=== PATIENT | female | born 1980 | race Caucasian/White ===

== ENCOUNTER → 2016-10-19 | Outpatient (CLI) | payer OTHER ==
[2016-05-17 19:30] VITALS: BP 130/71
[~2016-10-19] MED LIST: ALPR0.5T PO; ARIP20TA8 PO; CETI10TA22 PO; CLON0.5T PO; COLC0.6T34 PO; DOCU50CA6 PO; FERR325C PO; FLEC100T PO; FLUT1DIS IH; HYDR-971 PO; MONT10TA6 PO; NEBI5TAB2 PO; OMEP40CA5 PO; ONDA4TAB10 PO; OXYC-323; PRED20TA PO; RANI150C PO; SULF1TAB24 PO; SUMA100T4 PO; TRAM-29 PO
--- NOTE | 2016-10-19 15:47 | RAD ---
CT of the chest without contrast, 10/19/2016: History: Pleuritic chest pain, asthma Noncontrast scans were obtained as requested. The thoracic aorta is unremarkable. A couple of tiny coronary artery calcifications are noted in the proximal LAD. Small mediastinal lymph nodes are seen without evidence of pathologic enlargement. Hazy increased density in the anterior mediastinum is compatible with a small amount of residual thymic tissue. There are minimal linear opacities in the inferior lingular region compatible with scarring. No pulmonary mass or consolidation is seen. There is no evidence of pleural fluid. The gallbladder is surgically absent. IMPRESSION: 1. Minimal coronary artery calcification. 2. Minimal lingular scarring. 3. No acute abnormality is detected. PQRS Compliance Statement: One or more of the following individualized dose reduction techniques were utilized for this examination: 1. Automated exposure control 2. Adjustment of the mA and/or kV according to patient size 3. Use of iterative reconstruction technique
== END | disposition home or self-care (01) ==
LOC: CT 13:03
PROVIDERS: ATTEND Family Medicine
DX: J45.909 Unspecified asthma, uncomplicated (principal); I25.10 Atherosclerotic heart disease of native coronary artery without angina pectoris; L90.5 Scar conditions and fibrosis of skin; R07.81 Pleurodynia
CPT/HCPCS: 71250

== ENCOUNTER 2016-12-21 22:53 | Emergency (ER) | payer OTHER ==
[~2016-12-21] VITALS: Ht 165.1 cm; Wt 90.0 kg
[~2016-12-21 22:53] MED LIST changes: +ARIP20TA5 PO; -ARIP20TA8 PO; -TRAM-29 PO; +TRAM-48 PO
[2016-12-21] MEDS ORDERED: ASPIRIN 81 MG TAB.CHEW PO ONE (23:30)
--- NOTE | 2016-12-22 00:44 | PHYS DOC ---
General Chief Complaint: CHEST PAIN Stated Complaint: CHEST PAIN Time Seen by MD: 23:08 Source: patient, old records Exam Limitations: no limitations Problems: History of Present Illness Initial Comments Patient is a 36-year-old female who comes to the ED complaining of chest pain. Patient states that yesterday after lunch while at rest she developed sudden onset anterior chest pain described as stabbing. Symptoms described as mild at baseline however when patient lays down symptoms become severe and patient has trouble breathing due to discomfort. While lying flat she feels as if she can't take a deep breath. Patient denies fever, chills, sweats, myalgias, nausea, vomiting, diarrhea, arm or neck symptoms, dizziness, palpitations, cough, dyspnea on exertion, edema. Timing/Duration: 24 hours Severity: moderate Modifying Factors: worse with movement, improves with rest Associated Symptoms: chest pain, shortness of breath Allergies: Coded Allergies: bee venom (honey bee) (Verified Allergy, Severe, Anaphylaxis, 06/17/15) iodine (Unverified Allergy, Severe, Anaphylaxis, 01/25/14) shellfish derived (Verified Allergy, Severe, Anaphylaxis, 01/25/14) codeine (Unverified Allergy, Intermediate, Rash, 01/25/14) Past Medical History Medical History: other Surgical History: cholecystectomy, tonsillectomy, other Family History Significant Family History: no pertinent family hx, heart disease Review of Systems Constitutional: denies chills, denies diaphoresis, denies fever, denies malaise , denies weakness Respiratory: denies cough, orthopnea, shortness of breath, denies wheezing Cardiovascular: chest pain, denies edema, denies palpitations, denies syncope Gastrointestinal: denies abdominal pain, denies diarrhea, denies nausea, denies vomiting Genitourinary: denies dysuria, denies frequency, denies hematuria Musculoskeletal: denies back pain, denies joint swelling, denies neck pain Psychiatric/Neurological: denies headache, denies numbness, denies paresthesia Hematologic/Lymphatic: denies blood clots, denies easy bleeding, denies easy bruising Physical Exam General Appearance: no apparent distress, obese Eyes: bilateral eye normal inspection, bilateral eye PERRL, bilateral eye EOMI Ear, Nose, Throat: hearing grossly normal, normal ENT inspection, normal pharynx Neck: non-tender, supple Respiratory: normal breath sounds, no respiratory distress Cardiovascular: normal peripheral pulses, regular rate, rhythm Gastrointestinal: normal bowel sounds, non tender, soft Back: no CVA tenderness, no vertebral tenderness Extremities: normal range of motion, non-tender, normal inspection, no pedal edema Neurologic/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 Interpreted by me. Two-view chest: Images reviewed by me no acute cardiopulmonary process noted. 0043: Time in department 1h 50min. Labs just now collected as pt is very hard stick. Pt will have prolonged ED course due to laboratory delay. d-dimer 0.90 other labs unremarkable. Pt has iodine/shellfish allergy. I discussed findings with the patient. Unable to complete CT angiography due to patient allergy and inadequate vascular access. Acute coronary syndrome has been ruled out with symptoms greater than 12 hours. I discussed possible observation admission to keep watch over the patient overnight and consult with cardiology tomorrow. Patient refuses requesting discharge home. I discussed the treatment plan with the patient at length she expressed agreement and understanding of same. Departure Time of Disposition: : Disposition: 01 HOME, SELF-CARE Diagnosis: chest pain NOS Condition: STABLE Patient Instructions: Chest Pain (Nonspecific), [id number] Additional Instructions: Keep activity to "pain free." Continue current medications. Aggressive hydration with Gatorade and water. [id number] ibuprofen for baseline discomfort. Prescription: [place] 5 mg quantity 10 take with food as directed. Follow-up with your doctor on Tuesday for recheck and further dilation if necessary. Return to the ED with new or changing symptoms. RAMILA THOMPSON DO Dec 22, 2016 00:44
[2016-12-22 00:50] LABS: BASO # 0.1 x10^3/uL (0.0-0.2); BASO % 1 % (0-3); EOS # 0.2 x10^3/uL (0.0-0.7); EOS % 2 % (0-3); HEMATOCRIT 39.6 % (36.0-47.0); HEMOGLOBIN 13.5 g/dL (12.0-15.5); LYMPH # 3.5 x10^3/uL (1.0-4.8); LYMPH % 38 % (24-48); MEAN CORPUSCULAR HEMOGLOBIN 30 pg (25-35); MEAN CORPUSCULAR HGB CONC 34 g/dL (31-37); MEAN CORPUSCULAR VOLUME 87 fL (79-100); MONO # 0.8 x10^3/uL (0.0-1.1); MONO % 8 % (0-9); NEUT # 4.7 x10^3uL (1.8-7.7); NEUT % 51 % (31-73); PLATELET COUNT 357 x10^3/uL (140-400); RED BLOOD COUNT 4.54 x10^6/uL (3.50-5.40); RED CELL DISTRIBUTION WIDTH 13.8 % (11.5-14.5); WHITE BLOOD COUNT 9.2 x10^3/uL (4.0-11.0)
[2016-12-22 01:02] LABS: BARBITURATES NEG (NEG); BENZODIAZEPINES NEG (NEG); CANNABINOIDS NEG (NEG); COCAINE NEG (NEG); METHADONE NEG (NEG); OPIATES NEG (NEG); PHENCYCLIDINE NEG (NEG)
[2016-12-22 01:04] LABS: AMPHETAMINE/METHAMPHETAMINE NEG (NEG)
[2016-12-22 01:07] LABS: BACTERIA,URINE 0 /HPF (0-FEW); BILIRUBIN,URINE NEG (NEG); CLARITY,URINE CLEAR; COLOR,URINE YELLOW; GLUCOSE,URINE NEG (NEG); NITRITE,URINE NEG (NEG); RBC,URINE 0 /HPF (0-2); UROBILINOGEN,URINE 0.2 mg/dL (0.2 mg/dL); WBC,URINE 0 /HPF (0-4)
[2016-12-22 01:14] LABS: ALBUMIN/GLOBULIN RATIO 0.9 (1.0-1.7); C REACTIVE PROTEIN 2.7 mg/L (0-3.3); CREATININE 0.9 mg/dL (0.6-1.0); GFR 70.8; POTASSIUM 3.6 mmol/L (3.5-5.1); TOTAL BILIRUBIN 0.3 mg/dL (0.2-1.0); TOTAL PROTEIN 8.5 g/dL (6.4-8.2)
[2016-12-22] MEDS ORDERED: fentaNYL PF 100 MCG/2 ML VIAL IV ONE (02:00)
[2016-12-22 02:01] VITALS: BP 110/64
[2016-12-22] MEDS ORDERED: fentaNYL PF 100 MCG/2 ML VIAL ONE (02:03)
--- NOTE | 2016-12-22 06:29 | EKG ---
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
--- NOTE | 2016-12-22 08:42 | RAD ---
Chest, 2 views, 12/21/2016: History: Chest pain Comparison is made to a study from 05/17/2016. The heart size and pulmonary vascularity are normal. No pulmonary infiltrates are seen. There is no evidence of pleural fluid. IMPRESSION: No acute cardiopulmonary abnormality is detected.
== END 2016-12-22 02:08 | disposition home or self-care (01) ==
LOC: ER 22:53
DX: R07.89 Other chest pain (principal); Z91.030 Bee allergy status; Z91.041 Radiographic dye allergy status; Z88.5 Allergy status to narcotic agent; Z91.013 Allergy to seafood
CPT/HCPCS: 36415; 71020; 80053; 80305; 80320; 81001; 82550; 83690; 83880; 84484; 85027; 85379; 86140; 93005; 96374; 99285; J3010; G0480; G0481

== ENCOUNTER → 2017-05-11 | Outpatient (CLI) | payer OTHER, MEDICARE ==
--- NOTE | 2017-05-11 09:49 | RAD ---
Gastric emptying study 05/11/2017 Indication: Chronic abdominal pain. Nausea Comparison study: None Discussion: Imaging over the abdomen was performed over 1 hour following the oral administration of 2 mCi technetium 99 labeled sulfur colloid in a solid meal. An estimated gastric emptying half-time was calculated. Small amount of radiotracer is seen on cine images emptying into the small bowel. However only minimal emptying is seen on the time activity curve. Gastric emptying half time is estimated at 517 minutes (normal is 30 to 90 minutes). Impression: Delayed gastric emptying
== END | disposition home or self-care (01) ==
LOC: NM 07:50
PROVIDERS: ATTEND Internal Medicine Gastroenterology
DX: K31.84 Gastroparesis (principal)
CPT/HCPCS: 78264; A9541

== ENCOUNTER → 2017-07-11 | Outpatient (CLI) | payer OTHER, MEDICARE ==
--- NOTE | 2017-07-11 20:03 | RAD ---
Exam performed: 2 views of the chest. Indication: [id number] Precordial chest pain, short of air today. Old images sent from 12/21/16 for comparison. Date of Service: 07/11/2017 6:16 PM . Comparison : Two-view chest from 12/21/2016 Findings: PA and lateral radiographs of the chest reveal a stable, mildly enlarged cardiomediastinal contour. The lungs are clear. No pleural fluid is seen. Incidental right cervical rib. Impression: No acute cardiopulmonary process seen. Electronically signed by: Jenelle Peres MD (07/11/2017 7:59 PM) [facility]
== END | disposition home or self-care (01) ==
LOC: RAD 18:03
PROVIDERS: ATTEND Family Medicine
DX: R07.2 Precordial pain (principal)
CPT/HCPCS: 71046

== ENCOUNTER 2017-09-01 17:07 | Emergency (ER) | payer OTHER, MEDICARE ==
[~2017-09-01] VITALS: Ht 165.1 cm; Wt 90.0 kg
[2017-09-01] MEDS ORDERED: IV NORMAL SALINE 1,000ML 1,000 ML IV SCH (17:40)
--- NOTE | 2017-09-01 17:46 | PHYS DOC ---
Text Text KAHLIL Hensley attending note Dr. Silva Keller. Care assumed by me at 6 PM to follow labs and reevaluate patient after hydration. Workup unremarkable as well as CT benign. Patient is asymptomatic after 2 L of IV fluid able to stand and ambulate with no difficulty whatsoever. No further workup or treatment is indicated at this time. Patient agrees with outpatient follow-up and strict return precautions given (SILVA KELLER MD) General Chief Complaint: DIZZY/LIGHT HEADED Stated Complaint: DIZZY/DEHYDRATION Time Seen by MD: 17:40 Source: patient Exam Limitations: no limitations Problems: (RESHMA THOMPSON DO) Time Seen by MD: 19:20 Problems: (SILVA KELLER MD) History of Present Illness Initial Comments 37-year-old female comes to the ED complaining of headache and dizziness. Patient states that she had a gastric bypass procedure August 11, 2017. She states that since that time she's had issues maintaining hydration. For the past 2 days she's had worsening lightheadedness and headache when standing and active relieved by rest and supine position. Earlier today she was taking a bath and when she tried to stand up to get out she states she apparently passed out. She says the next recollection was lying on her back in the tub with her daughter crying out to her. She's had a headache described as mild global throbbing throughout the day no photophobia and nausea or vomiting. No neck stiffness she has a small bruise at her right parietal region but otherwise denies any other injuries. Denies urinary nose discharge denies chest pain or trouble breathing. Headache symptoms have been easing up throughout the day she has no new or progressive symptoms. She has come for head injury evaluation and to determine if she's dehydrated as she feels that the cause of her fall. Timing/Duration: other Severity: moderate Modifying Factors: worse with movement, improves with rest Associated Symptoms: headaches, malaise, syncope, weakness (RESHMA THOMPSON DO) Allergies: Coded Allergies: bee venom (honey bee) (Verified Allergy, Severe, Anaphylaxis, 06/17/15) iodine (Unverified Allergy, Severe, Anaphylaxis, 01/25/14) shellfish derived (Verified Allergy, Severe, Anaphylaxis, 01/25/14) codeine (Unverified Allergy, Intermediate, Rash, 01/25/14) Past Medical History Medical History: other (WPW, obesity, asthma, GERD, depression, hypertension) Surgical History: cholecystectomy, tonsillectomy, other ( section, hysterectomy, gastric bypass August 11, 2017) (RESHMA THOMPSON DO) Family History Significant Family History: no pertinent family hx, heart disease (RESHMA THOMPSON DO) Social History Smoker: non-smoker Alcohol: occasionally Drugs: none (RESHMA THOMPSON DO) Review of Systems Constitutional: denies chills, denies diaphoresis, denies fever, malaise EENTM: denies eye pain, denies blurred vision, denies tearing, denies double vision, denies ear pain, denies ear discharge, denies nose congestion, denies throat pain Respiratory: denies cough, denies shortness of breath Cardiovascular: denies chest pain, denies palpitations, syncope Gastrointestinal: denies abdominal pain, denies diarrhea, denies nausea, denies vomiting Genitourinary: denies dysuria, denies frequency, denies hematuria Musculoskeletal: denies back pain, denies joint swelling, denies neck pain Psychiatric/Neurological: see HPI, denies numbness, denies paresthesia, denies seizure, denies tingling, denies weakness Hematologic/Lymphatic: denies blood clots, denies easy bleeding, denies easy bruising (RESHMA THOMPSON DO) Physical Exam General Appearance: WD/WN, no apparent distress Eyes: bilateral eye normal inspection, bilateral eye PERRL, bilateral eye EOMI Ear, Nose, Throat: hearing grossly normal, normal ENT inspection, normal pharynx (no ear or nose discharge no fluid behind TMs), other (negative Wiggins sign negative raccoon eyes small tender area at the right parietal consistent with history no palpable bony deformity head is otherwise normocephalic atraumatic) Neck: non-tender, full range of motion, supple, normal inspection Respiratory: normal breath sounds, no respiratory distress Cardiovascular: normal peripheral pulses, regular rate, rhythm Gastrointestinal: non tender, soft Extremities: non-tender, normal inspection 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 1752: CT, lab, and urine evaluation initiated and a 1 L normal saline IV bolus ordered. Patient will be signed out to Dr. Keller at 1800 shift change. See his documentation for results and patient disposition. (RESHMA THOMPSON DO) RESHMA THOMPSON DO Sep 01, 2017 17:46 SILVA KELLER MD Sep 01, 2017 20:50
--- NOTE | 2017-09-01 18:09 | RAD ---
CT head and cervical spine without contrast History: Fall today, head trauma Technique: Noncontrast CT imaging was performed of the head and cervical spine. Multiplanar reconstruction images are submitted. Exposure: One or more of the following individualized dose reduction techniques were utilized for this examination: 1. Automated exposure control 2. Adjustment of the mA and/or kV according to patient size 3. Use of iterative reconstruction technique. Head CT Comparison: 03/29/2016 Findings: There is some motion degradation. No convincing acute extra-axial or parenchymal hemorrhage is identified. There is no significant intra-axial mass effect, midline shift, or extra-axial fluid collection. The donald-white differentiation of the major vascular territories is preserved. The ventricles, sulci, and cisterns are within normal limits in size and configuration. The mastoid air cells and the visualized paranasal sinuses are aerated. There is no significant focal calvarial abnormality. Impression: 1. Allowing for motion, no convincing acute intracranial abnormality is identified. Cervical spine CT Comparison: None Findings: No acute cervical spine fracture is identified. Vertebral body stature and AP alignment are within normal limits. Atlanto-axial distance is within normal limits. There is appropriate alignment of lateral masses of C1 relative to C2. Occipital condylar-C1 relationship is maintained. There is very mild cervical dextroscoliosis. Impression: 1. No acute cervical spine fracture is identified. Electronically signed by: Kranthi Linn MD (09/01/2017 6:06 PM) [facility]
[2017-09-01 18:42] LABS: BASO # 0.1 x10^3/uL (0.0-0.2); BASO % 1 % (0-3); EOS # 0.1 x10^3/uL (0.0-0.7); EOS % 2 % (0-3); HEMATOCRIT 39.6 % (36.0-47.0); HEMOGLOBIN 13.7 g/dL (12.0-15.5); LYMPH # 2.3 x10^3/uL (1.0-4.8); LYMPH % 39 % (24-48); MEAN CORPUSCULAR HEMOGLOBIN 31 pg (25-35); MEAN CORPUSCULAR HGB CONC 35 g/dL (31-37); MEAN CORPUSCULAR VOLUME 89 fL (79-100); MONO # 0.5 x10^3/uL (0.0-1.1); MONO % 9 % (0-9); NEUT # 2.8 x10^3uL (1.8-7.7); NEUT % 49 % (31-73); PLATELET COUNT 358 x10^3/uL (140-400); RED BLOOD COUNT 4.47 x10^6/uL (3.50-5.40); RED CELL DISTRIBUTION WIDTH 13.8 % (11.5-14.5); WHITE BLOOD COUNT 5.8 x10^3/uL (4.0-11.0)
[2017-09-01 18:49] LABS: ALBUMIN 4.1 g/dL (3.4-5.0); ALBUMIN/GLOBULIN RATIO 1.1 (1.0-1.7); CALCIUM 9.4 mg/dL (8.5-10.1); CREATININE 0.5 mg/dL (0.6-1.0); GFR 138.8; POTASSIUM 3.5 mmol/L (3.5-5.1); TOTAL BILIRUBIN 0.5 mg/dL (0.2-1.0); TOTAL PROTEIN 7.8 g/dL (6.4-8.2)
[2017-09-01 19:15] LABS: BILIRUBIN,URINE NEG (NEG); CLARITY,URINE HAZY; COLOR,URINE YELLOW; GLUCOSE,URINE NEG (NEG); NITRITE,URINE NEG (NEG); UROBILINOGEN,URINE 0.2 mg/dL (0.2 mg/dL)
[2017-09-01 19:16] LABS: BACTERIA,URINE FEW /HPF (0-FEW); HYALINE CASTS, URINE MOD /HPF; SQUAMOUS EPITHELIAL CELL,UR FEW /LPF
[2017-09-01 19:23] VITALS: BP 124/58
[2017-09-01] MEDS ORDERED: IV NORMAL SALINE 1,000ML 1,000 ML IV ONE (19:30)
--- NOTE | 2017-09-02 09:15 | EKG ---
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
== END 2017-09-01 20:52 | disposition home or self-care (01) ==
LOC: ER 17:07
DX: S00.93XA Contusion of unspecified part of head, initial encounter (principal); E86.0 Dehydration; R55 Syncope and collapse; J45.909 Unspecified asthma, uncomplicated; K21.9 Gastro-esophageal reflux disease without esophagitis; I10 Essential (primary) hypertension; F32.9 Major depressive disorder, single episode, unspecified; Z98.84 Bariatric surgery status; Z91.030 Bee allergy status; Z91.041 Radiographic dye allergy status; Z88.5 Allergy status to narcotic agent; Z91.013 Allergy to seafood; W19.XXXA Unspecified fall, initial encounter; Y93.89 Activity, other specified; Y99.8 Other external cause status; Y92.89 Other specified places as the place of occurrence of the external cause
CPT/HCPCS: 36415; 70450; 72125; 80053; 81001; 84484; 85025; 85379; 93005; 96360; 96361; 99285-25; J7030

== ENCOUNTER 2017-09-28 14:42 | Emergency (ER) | payer OTHER, MEDICARE ==
[~2017-09-28] VITALS: Ht 157.5 cm; Wt 72.6 kg
--- NOTE | 2017-09-28 15:43 | EKG ---
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
[2017-09-28] MEDS ORDERED: IV NORMAL SALINE 1,000ML 1,000 ML IV ONE (15:45)
[2017-09-28 15:58] LABS: BASO # 0.1 x10^3/uL (0.0-0.2); BASO % 1 % (0-3); EOS # 0.2 x10^3/uL (0.0-0.7); EOS % 3 % (0-3); HEMOGLOBIN 14.6 g/dL (12.0-15.5); LYMPH # 2.1 x10^3/uL (1.0-4.8); LYMPH % 42 % (24-48); MEAN CORPUSCULAR HEMOGLOBIN 31 pg (25-35); MEAN CORPUSCULAR HGB CONC 34 g/dL (31-37); MEAN CORPUSCULAR VOLUME 90 fL (79-100); MONO # 0.5 x10^3/uL (0.0-1.1); MONO % 9 % (0-9); NEUT # 2.3 x10^3uL (1.8-7.7); NEUT % 45 % (31-73); PLATELET COUNT 277 x10^3/uL (140-400); RED BLOOD COUNT 4.78 x10^6/uL (3.50-5.40); RED CELL DISTRIBUTION WIDTH 14.7 % (11.5-14.5); WHITE BLOOD COUNT 5.1 x10^3/uL (4.0-11.0)
[2017-09-28 16:13] LABS: ALBUMIN 3.9 g/dL (3.4-5.0); ALBUMIN/GLOBULIN RATIO 1.2 (1.0-1.7); CALCIUM 8.9 mg/dL (8.5-10.1); CREATININE 0.6 mg/dL (0.6-1.0); GFR 112.5; POTASSIUM 3.6 mmol/L (3.5-5.1); TOTAL BILIRUBIN 0.6 mg/dL (0.2-1.0); TOTAL PROTEIN 7.1 g/dL (6.4-8.2)
[2017-09-28 17:11] LABS: BACTERIA,URINE FEW /HPF (0-FEW); BILIRUBIN,URINE NEG (NEG); CLARITY,URINE CLEAR; COLOR,URINE YELLOW; GLUCOSE,URINE NEG (NEG); NITRITE,URINE NEG (NEG); SQUAMOUS EPITHELIAL CELL,UR MANY /LPF; UROBILINOGEN,URINE 4 mg/dL (0.2 mg/dL)
[2017-09-28 17:16] VITALS: BP 116/73
[2017-09-28] MEDS ORDERED: SULF1TAB24 PO (17:32)
--- NOTE | 2017-09-28 17:32 | PHYS DOC ---
Past History Past Medical History: Asthma, Other Past Surgical History: Cholecystectomy, , Gastric Bypass, Hysterectomy , Tonsillectomy, Other Smoking: Non-smoker Alcohol Use: None Drug Use: None Adult General Chief Complaint Chief Complaint: SYNCOPE HPI HPI 37-year-old female patient with history of WPW and gastric bypass 8 weeks ago and loosing 45 pounds states she was seen by her primary care physician yesterday and was told that she had blood and ketones in her urine and commented to come to emergency room if she has dizziness. Patient states she had dizziness today and on her feet to come to the hospital had a syncopal episode that was witnessed by her friend without fall or head injury. Patient states she had history of another episode of syncopal episode previously. Patient denies palpitation, fever and chills, chest pain, shortness of breath, vomiting and diarrhea. Patient complaining of constipation. Review of Systems Review of Systems Constitutional: Denies fever or chills [] Eyes: Denies change in visual acuity, redness, or eye pain [] HENT: Denies nasal congestion or sore throat [] Respiratory: Denies cough or shortness of breath [] Cardiovascular: No additional information not addressed in HPI [] GI: Denies abdominal pain, nausea, vomiting, bloody stools or diarrhea [] : Denies dysuria or hematuria [] Musculoskeletal: Denies back pain or joint pain [] Integument: Denies rash or skin lesions [] Neurologic: Denies headache, focal weakness or sensory changes [] Endocrine: Denies polyuria or polydipsia [] All other systems were reviewed and found to be within normal limits, except as documented in this note. Current Medications Current Medications Current Medications Medications (Trade) Dose Ordered Sig/Eleonora Start Time Stop Time Status Last Admin Dose Admin Sodium Chloride 1,000 ml @ 1,000 mls/hr 1X ONCE 09/28/17 15:45 09/28/17 16:44 DC 09/28/17 15:54 1,000 MLS/HR Allergies Allergies Allergies Coded Allergies Type Severity Reaction Last Updated Verified bee venom (honey bee) Allergy Severe Anaphylaxis 06/17/15 Yes iodine Allergy Severe Anaphylaxis 01/25/14 No shellfish derived Allergy Severe Anaphylaxis 01/25/14 Yes codeine Allergy Intermediate Rash 01/25/14 No Physical Exam Physical Exam Constitutional: Well developed, well nourished, mild distress, non-toxic appearance. [] HENT: Normocephalic, atraumatic, bilateral external ears normal, oropharynx dry , no oral exudates, nose normal. [] Eyes: PERRLA, EOMI, conjunctiva normal, no discharge. [] Neck: Normal range of motion, no tenderness, supple, no stridor. [] Cardiovascular:Heart rate regular rhythm, no murmur [] Lungs & Thorax: Bilateral breath sounds clear to auscultation [] Abdomen: Bowel sounds normal, soft, no tenderness, no masses, no pulsatile masses. [] Skin: Warm, dry, no erythema, no rash. [] Back: No tenderness, no CVA tenderness. [] Extremities: No tenderness, no cyanosis, no clubbing, ROM intact, no edema. [] Neurologic: Alert and oriented X 3, normal motor function, normal sensory function, no focal deficits noted. [] Psychologic: Affect normal, judgement normal, mood normal. [] Current Patient Data Vital Signs Vital Signs Date Time Temp Pulse Resp B/P (MAP) Pulse Ox O2 Delivery O2 Flow Rate FiO2 09/28/17 17:16 81 16 116/73 (87) 99 09/28/17 16:27 Room Air 09/28/17 14:54 98.0 Lab Results Laboratory Tests Test 09/28/17 15:27 09/28/17 15:41 White Blood Count 5.1 x10^3/uL (4.0-11.0) Red Blood Count 4.78 x10^6/uL (3.50-5.40) Hemoglobin 14.6 g/dL (12.0-15.5) Hematocrit 43.0 % (36.0-47.0) Mean Corpuscular Volume 90 fL (79-100) Mean Corpuscular Hemoglobin 31 pg (25-35) Mean Corpuscular Hemoglobin Concent 34 g/dL (31-37) Red Cell Distribution Width 14.7 % (11.5-14.5) H Platelet Count 277 x10^3/uL (140-400) Neutrophils (%) (Auto) 45 % (31-73) Lymphocytes (%) (Auto) 42 % (24-48) Monocytes (%) (Auto) 9 % (0-9) Eosinophils (%) (Auto) 3 % (0-3) Basophils (%) (Auto) 1 % (0-3) Neutrophils # (Auto) 2.3 x10^3uL (1.8-7.7) Lymphocytes # (Auto) 2.1 x10^3/uL (1.0-4.8) Monocytes # (Auto) 0.5 x10^3/uL (0.0-1.1) Eosinophils # (Auto) 0.2 x10^3/uL (0.0-0.7) Basophils # (Auto) 0.1 x10^3/uL (0.0-0.2) Sodium Level 143 mmol/L (136-145) Potassium Level 3.6 mmol/L (3.5-5.1) Chloride Level 105 mmol/L (98-107) Carbon Dioxide Level 25 mmol/L (21-32) Anion Gap 13 (6-14) Blood Urea Nitrogen 11 mg/dL (7-20) Creatinine 0.6 mg/dL (0.6-1.0) Estimated GFR (Cockcroft-Gault) 112.5 BUN/Creatinine Ratio 18 (6-20) Glucose Level 88 mg/dL (70-99) Calcium Level 8.9 mg/dL (8.5-10.1) Total Bilirubin 0.6 mg/dL (0.2-1.0) Aspartate Amino Transferase (AST) 25 U/L (15-37) Alanine Aminotransferase (ALT) 28 U/L (14-59) Alkaline Phosphatase 131 U/L (46-116) H Troponin I Quantitative < 0.017 ng/mL (0-0.055) Total Protein 7.1 g/dL (6.4-8.2) Albumin 3.9 g/dL (3.4-5.0) Albumin/Globulin Ratio 1.2 (1.0-1.7) Urine Collection Type Void Urine Color Yellow Urine Clarity Clear Urine pH 8.5 Urine Specific [place] 1.020 Urine Protein 100 mg/dl (NEG-TRACE) Urine Glucose (UA) Neg mg/dL (NEG) Urine Ketones (Stick) >=160 mg/dL (NEG) Urine Blood Trace (NEG) Urine Nitrite Neg (NEG) Urine Bilirubin Neg (NEG) Urine Urobilinogen Dipstick 4 mg/dL (0.2 mg/dL) Urine Leukocyte Esterase Neg (NEG) Urine RBC 3-5 /HPF (0-2) Urine WBC 5-10 /HPF (0-4) Urine Squamous Epithelial Cells Many /LPF Urine Bacteria Few /HPF (0-FEW) Urine Mucus Marked /LPF EKG EKG EKG interpreted by me. EKG at 1457 showed sinus rhythm at rate of 87, left montelongo axis, T wave abnormality in anterior leads, no acute ST and T-wave abnormalities [] Radiology/Procedures Radiology/Procedures [] Course & Med Decision Making Course & Med Decision Making Pertinent Labs studies reviewed. (See chart for details) Evaluation of patient in ER showed 37-year-old female patient with complaining of episodes of syncope with dizziness. Patient had unremarkable physical exam and negative orthostatic vital signs. Patient treated with IV fluid and felt better. Labs showed ketonuria with UTI. Patient tolerated oral intake and instructed to increase fluid intake and follow up with her primary care physician and gastric bypass surgeon. Dragon Disclaimer Dragon Disclaimer This electronic medical record was generated, in whole or in part, using a voice recognition dictation system. Departure Departure: Impression: Primary Impression: Syncope Additional Impressions: Urinary tract bacterial infections Ketonuria H/O gastric bypass Disposition: HOME, SELF-CARE (at 1731) Condition: IMPROVED Referrals: ALBA PALAFOX DO (PCP) Patient Instructions: Dehydration, Adult, Syncope, Urinary Tract Infection Additional Instructions: Drink plenty of liquids Follow-up with your primary care physician in 3-5 days Return to ER if not getting better Scripts Sulfamethoxazole/Trimethoprim (BACTRIM DS TABLET) 1 Each Tablet 1 TAB PO BID, #6 TAB Prov: RONNI COUGHLIN MD 09/28/17 Problem Qualifiers RONNI COUGHLIN MD Sep 28, 2017 17:32
== END 2017-09-28 17:42 | disposition home or self-care (01) ==
LOC: ER 14:42
DX: R55 Syncope and collapse (principal); N39.0 Urinary tract infection, site not specified; B96.89 Other specified bacterial agents as the cause of diseases classified elsewhere; R82.4 Acetonuria; J45.909 Unspecified asthma, uncomplicated; Z98.84 Bariatric surgery status; Z91.030 Bee allergy status; Z91.041 Radiographic dye allergy status; Z88.5 Allergy status to narcotic agent; Z91.013 Allergy to seafood
CPT/HCPCS: 36415; 80053; 81001; 84484; 85025; 87086; 87186; 93005; 96360; 99285-25; J7030

== ENCOUNTER → 2017-11-28 | Outpatient (CLI) | payer OTHER, MEDICARE ==
--- NOTE | 2017-11-28 15:51 | RAD ---
Indication: Dyspnea for 2 days TECHNIQUE: Ventilation scan was performed with 20 mCi of xenon-133 and perfusion scan was performed with 5.5 mCi of technetium 99m MAA. COMPARISON: None. FINDINGS: Homogeneous distribution is seen of the xenon gas on ventilation scan without retention. The perfusion images demonstrate homogeneous distribution of the perfusion agent. No ventilation/perfusion mismatch seen. IMPRESSION: Low probability VQ scan. Electronically signed by: Trey Davis DO (11/28/2017 3:47 PM) [facility]
--- NOTE | 2017-11-28 16:01 | RAD ---
Indication: Shortness of breath TECHNIQUE: PA and lateral views of the chest COMPARISON: Previous study from 07/11/2017 FINDINGS: Heart is normal in size. Lungs are clear. No pneumothorax or effusion. Visualized bony thorax within normal limits. IMPRESSION: No acute cardiopulmonary process. Electronically signed by: Trey Davis DO (11/28/2017 3:58 PM) [facility]
== END | disposition home or self-care (01) ==
LOC: NM 14:16
PROVIDERS: ATTEND Family Medicine
DX: R07.1 Chest pain on breathing (principal); R06.02 Shortness of breath
CPT/HCPCS: 71046; 78582; 96374; A9540; A9558

== ENCOUNTER 2017-12-24 20:52 | Emergency (ER) | payer OTHER, MEDICARE ==
[~2017-12-24] VITALS: Ht 157.5 cm; Wt 62.3 kg
--- NOTE | 2017-12-24 20:57 | ED.ADGEN ---
Past History Past Medical History: Asthma, Other Past Surgical History: Cholecystectomy, , Gastric Bypass, Hysterectomy , Tonsillectomy, Other Smoking: Non-smoker Alcohol Use: None Drug Use: None Adult General Chief Complaint Chief Complaint ".. I was wrestling with my this morning.. and I caught a knee on my Rt. Chest wall.. and it been sore ever since..." HPI HPI Patient is a 37 year old female who presents with above hx and complaints of chest pain. Pt. is along Rt. chest wall anterior axillary line. Pt. 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 Pt. has also had gall bladder surgery. Pt. states pain has not improved thru. the day. Pt. has pain with palpation of ribs. No hepatic tenderness. Pt. declines CT of Chest with contrast due to iodine allergy. Review of Systems Review of Systems Constitutional: Denies fever or chills [] Eyes: Denies change in visual acuity, redness, or eye pain [] HENT: Denies nasal congestion or sore throat [] Respiratory: Denies cough or shortness of breath [] Cardiovascular: No additional information not addressed in HPI [] GI: Denies abdominal pain, nausea, vomiting, bloody stools or diarrhea [] : Denies dysuria or hematuria [] Musculoskeletal: Denies back pain or joint pain [] Integument: Denies rash or skin lesions [] Neurologic: Denies headache, focal weakness or sensory changes [] Endocrine: Denies polyuria or polydipsia [] All other systems were reviewed and found to be within normal limits, except as documented in this note. Family History Family History Non-contributory. Current Medications Current Medications Current Medications Medications (Trade) Dose Ordered Sig/Eleonora Start Time Stop Time Status Last Admin Dose Admin Oxycodone/ Acetaminophen (Percocet 5/325) 2 tab 1X ONCE 12/24/17 21:30 12/24/17 21:31 DC 12/24/17 21:25 2 TAB Allergies Allergies Allergies Coded Allergies Type Severity Reaction Last Updated Verified bee venom (honey bee) Allergy Severe Anaphylaxis 06/17/15 Yes iodine Allergy Severe Anaphylaxis 01/25/14 No shellfish derived Allergy Severe Anaphylaxis 01/25/14 Yes codeine Allergy Intermediate Rash 01/25/14 No Physical Exam Physical Exam Constitutional: [id number] distress, non-toxic appearance. [] HENT: Normocephalic, atraumatic, bilateral external ears normal, oropharynx moist, no oral exudates, nose normal. [] Eyes: PERRLA, EOMI, conjunctiva normal, no discharge. [] Neck: Normal range of motion, no tenderness, supple, no stridor. [] Cardiovascular, bradycardia:Heart rate regular rhythm, no murmur [] Lungs & Thorax: Bilateral breath sounds clear to auscultation, Breast reduction scars and pericardial window scars Abdomen: Bowel sounds normal, soft, no tenderness, no masses, no pulsatile masses. [Multiple abdomen scars. Skin: Warm, dry, no erythema, no rash. [] Back: No tenderness, no CVA tenderness. [] Extremities: No tenderness, no cyanosis, no clubbing, ROM intact, no edema. [] No cording appreciated Neurologic: Alert and oriented X 3, normal motor function, normal sensory function, no focal deficits noted. [] Psychologic: Affect anxious, judgement normal, mood normal. [] Current Patient Data Vital Signs Vital Signs Date Time Temp Pulse Resp B/P (MAP) Pulse Ox O2 Delivery O2 Flow Rate FiO2 12/24/17 22:40 55 16 138/63 (88) 98 Room Air EKG EKG My interpretation EKG shows a sinus bradycardia 52 bpm. There is leftward axis. Some nonspecific T-wave abnormalities in anterior and inferior leads. Does have inverted T waves in V1 2,3,4,5 and 6[] ( Hx. of WPW and Cardiac Arrest , and atrial perforation during ablation attempt) Radiology/Procedures Radiology/Procedures My interpretation of CXR shows no obvious pneumo or rib fx. Old surgery clips and scars. [] Course & Med Decision Making Course & Med Decision Making Pertinent Labs and Imaging studies reviewed. (See chart for details) Tylenol and Ibuprofen for pain. Marked pain vicoprofen. Do not bind chest. Return if persistent pain, or worse symptoms- Risk /Benefit of CT with contrast. [] Final Impression Final Impression 1. Chest Wall Pain[]- Dragon Disclaimer Dragon Disclaimer This electronic medical record was generated, in whole or in part, using a voice recognition dictation system. ARLET RAM MD Dec 24, 2017 20:57
[2017-12-24] MEDS ORDERED: oxyCODONE/APAP 5/325 1 TAB TABLET PO ONE (21:30)
[2017-12-24] MEDS ORDERED: HYDR-79 PO (22:22)
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
[2017-12-24 22:40] VITALS: BP 138/63
[2017-12-24] MEDS ORDERED: OXYC-323 PO (22:41)
== END 2017-12-24 22:44 | disposition home or self-care (01) ==
LOC: ER 20:52
DX: R07.89 Other chest pain (principal); J45.909 Unspecified asthma, uncomplicated; Z91.030 Bee allergy status; Z91.041 Radiographic dye allergy status; Z88.5 Allergy status to narcotic agent; Z91.013 Allergy to seafood
CPT/HCPCS: 71046; 93005; 99284

== ENCOUNTER → 2018-06-16 | Outpatient (CLI) | payer OTHER, MEDICARE ==
[~2018-06-16] MED LIST changes: +HYDR-1179 PO; +HYDR-3165 PO; -HYDR-971 PO; -OXYC-323; +OXYC1TAB15; +OXYC1TAB15 PO
--- NOTE | 2018-06-16 15:07 | RAD ---
DATE: 06/16/2018 EXAM: DIGITAL DIAGNOSTIC BILATERAL, BREAST BILATERAL HISTORY: Left breast lump COMPARISON: None available This study was interpreted with the benefit of Computerized Aided Detection (CAD). Breast Density: HETERO The breast parenchyma is heterogenously dense, which could reduce sensitivity of mammography. Breast parenchyma level C. FINDINGS: 2-D and 3-D tomosynthesis imaging was performed in CC and MLO projections. There is a cluster of pleomorphic microcalcifications in the anterior aspect of the left breast in the retroareolar region centered just superior to the midline. There are also small lucencies in this region suggesting small oil cysts. There is a second area of similar microcalcification in the superior aspect of the left breast at approximately the 12:00 location. There are also small rounded lucencies in this region. There is a smaller cluster of microcalcifications located far posteriorly in the inferolateral aspect of the left breast. No right breast mass or suspicious microcalcifications are evident. Left breast ultrasound, 06/08/2018: At the 12:00 location in the left breast approximately 1 cm from the nipple there is a heterogeneous oval-shaped mass measuring 2.3 x 1.1 x 1.1 cm. It has a solid appearance. There are specular echoes within this process which probably correspond to some of the calcifications seen mammographically. Just superior to this level there is a small nonspecific 3 mm hypoechoic nodule . This may be a superior extension of this larger process. At the 12:00 location approximately 6 cm from the nipple there is an additional heterogeneous hypoechoic mass measuring 2.4 x 1.2 x 1.1 cm. There are several tiny internal echogenic foci which are probably calcifications. This demonstrates a similar sonographic appearance to the retroareolar nodule. This appears to correspond to the 12:00 grouping of microcalcifications seen on the mammograms. No sonographic correlate was identified for the more posterolateral left breast calcifications. IMPRESSION: Pleomorphic clustered microcalcifications in the left breast, with 2 of these clusters corresponding to heterogeneous solid nodules identified sonographically. Diagnostic considerations include fat necrosis related to previous breast surgery, versus multifocal breast malignancy. Ultrasound-guided biopsy of these 2 dominant nodules is suggested for further evaluation. Note: The findings were given to the patient by the electro mechanical technologist at the time of the exam. She understands the recommendation for biopsy and will follow-up with the ordering physician. BI-RADS CATEGORY: 4 SUSPICIOUS ABNORMALITY- BIOPSY SHOULD BE CONSIDERED RECOMMENDED FOLLOW-UP: BIO BIOPSY RECOMMENDED PQRS compliance statement: Patient information was entered into a reminder system with a target due date for the next mammogram. Mammography is a sensitive method for finding small breast cancers, but it does not detect them all and is not a substitute for careful clinical examination. A negative mammogram does not negate a clinically suspicious finding and should not result in delay in biopsying a clinically suspicious abnormality. "Our facility is accredited by the [employer] Mammography Program."
== END | disposition home or self-care (01) ==
LOC: MAMMO 13:05
PROVIDERS: ATTEND Specialist
DX: N63.21 Unspecified lump in the left breast, upper outer quadrant (principal)
CPT/HCPCS: 76641; 77066; G0279; 77062

== ENCOUNTER 2019-03-16 09:43 | Emergency (ER) | payer OTHER, MEDICARE ==
[~2019-03-16] VITALS: Ht 162.6 cm; Wt 46.7 kg
[~2019-03-16 09:43] MED LIST changes: -MONT10TA6 PO; +MONT10TA80 PO; +OMEP40CA45 PO; -OMEP40CA5 PO
[2019-03-16 09:51] VITALS: BP 125/71
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
--- NOTE | 2019-03-16 10:34 | RAD ---
CT head and cervical spine without contrast History: [facility] Technique: Noncontrast CT imaging was performed of the head and cervical spine. Multiplanar reconstruction images are submitted. Exposure: One or more of the following individualized dose reduction techniques were utilized for this examination: 1. Automated exposure control 2. Adjustment of the mA and/or kV according to patient size 3. Use of iterative reconstruction technique. Head CT Comparison: September 01, 2017 Findings: Patient's head is somewhat tilted in gantry during exam and there is mild motion. No convincing acute extra-axial or parenchymal hemorrhage is identified. There is no significant intra-axial mass effect, midline shift, or extra-axial fluid collection. The donald-white differentiation of the major vascular territories is preserved. The ventricles, sulci, and cisterns are within normal limits in size and configuration. The mastoid air cells and the visualized paranasal sinuses are aerated. There is no significant focal calvarial abnormality. Impression: 1. No convincing acute intracranial abnormality is identified. Cervical spine CT Comparison: September 01, 2017 Findings: No acute cervical spine fracture is identified. Vertebral body stature and AP alignment are within normal limits. Atlanto-axial distance is within normal limits. There is appropriate alignment of lateral masses of C1 relative to C2. Occipital condylar-C1 relationship is maintained. Intervertebral disc spaces are maintained. There is no significant osseous cervical spinal stenosis identified on this nonmyelographic exam. There is again mild dextroscoliosis of the cervical spine. Impression: 1. No acute cervical spine fracture is identified. Electronically signed by: Kranthi Linn MD (03/16/2019 10:31 AM) [facility]
[2019-03-16] MEDS ORDERED: HYDROcodone/APAP 5/325MG 1 TAB TABLET PO ONE (10:45)
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
[2019-03-16] MEDS ORDERED: NAPROXEN 500 MG TABLET PO ONE (11:00)
[2019-03-16] MEDS ORDERED: HYDR-3165 PO (11:17)
== END 2019-03-16 11:26 | disposition home or self-care (01) ==
LOC: ER 09:43
DX: S20.212A Contusion of left front wall of thorax, initial encounter (principal); M54.2 Cervicalgia; R51 Headache; F41.9 Anxiety disorder, unspecified; J45.909 Unspecified asthma, uncomplicated; Z98.84 Bariatric surgery status; Z88.8 Allergy status to other drugs, medicaments and biological substances; Z91.030 Bee allergy status; Z88.5 Allergy status to narcotic agent; Z91.013 Allergy to seafood; V43.52XA Car driver injured in collision with other type car in traffic accident, initial encounter; Y93.I9 Activity, other involving external motion; Y92.488 Other paved roadways as the place of occurrence of the external cause; Y99.8 Other external cause status
CPT/HCPCS: 70450; 71101; 72125; 99284-25